=== PATIENT | female | born 1965 | race Caucasian/White ===

== ENCOUNTER 2018-09-29 08:39 | Day surgery (SDC) | payer OTHER ==
[2018-09-29] MEDS ORDERED: LIDOCAINE 2% (SDV) 5 ML INJ (09:44)
[2018-09-29] MEDS ORDERED: PROPOFOL 60 ML (09:44)
[2018-09-29] MEDS ORDERED: ONDANSETRON 4 MG INJ IV (10:00)
== END 2018-09-29 14:50 | disposition home or self-care (01) ==
LOC: GIL 08:39
DX: Z12.11 Encounter for screening for malignant neoplasm of colon (principal); K64.8 Other hemorrhoids; K21.9 Gastro-esophageal reflux disease without esophagitis
CPT/HCPCS: 43239; 88305; 88312